=== PATIENT | male | born 1995 | race Caucasian/White ===

== ENCOUNTER 2020-02-23 18:49 | Emergency (ER) | payer OTHER ==
[~2020-02-23] VITALS: Ht 177.8 cm; Wt 72.6 kg
[2020-02-23 19:02] VITALS: Ht 177.8 cm; Wt 72.6 kg
[2020-02-23 19:43] LABS: BASOPHIL % 0.5 % (0-2); PLATELET COUNT 194 x10^3mcL (130-400)
[2020-02-23 19:44] LABS: RED CELL DISTRIBUTION WIDTH 14.7 % (11.5-14.5)
[2020-02-23 19:48] LABS: CALCIUM 8.6 mg/dL (8.5-10.1); CARBON DIOXIDE 33.3 mmol/L (21-32); CHLORIDE SERUM 105 mmol/L (98-107); CREATININE SERUM 0.9 mg/dL (0.7-1.3); GFR1 > 60 mL/min; GLUCOSE SERUM 88 mg/dL (74-106); POTASSIUM SERUM 3.6 mmol/L (3.5-5.1); SODIUM SERUM 143 mmol/L (136-145)
[2020-02-23 19:52] LABS: ALKALINE PHOSPHATASE 74 U/L (46-116); ALT/SGPT 27 U/L (16-63); AST/SGOT 24 U/L (15-37); BILIRUBIN TOTAL 0.35 mg/dL (0.20-1.00); TOTAL PROTEIN, SERUM 6.9 g/dL (6.4-8.2)
[2020-02-23 20:56] LABS: microscopic required? NO
[2020-02-23 21:05] LABS: UA SPECIFIC GRAVITY 1.015 (1.005-1.035); urine erythrocyte NEGATIVE (NEGATIVE)
[2020-02-23 21:21] LABS: AMPHETAMINE QUAL UR NONE DETECTED (See below)
[2020-02-24 00:26] VITALS: BP 109/57
== END 2020-02-24 00:26 | disposition home or self-care (01) ==
LOC: ED 18:49
PROVIDERS: Emergency Medicine
DX: S00.93XA Contusion of unspecified part of head, initial encounter (principal); F10.129 Alcohol abuse with intoxication, unspecified; X58.XXXA Exposure to other specified factors, initial encounter; Y93.89 Activity, other specified; Y92.89 Other specified places as the place of occurrence of the external cause; Y99.8 Other external cause status
CPT/HCPCS: G0480